=== PATIENT | female | born 1980 | race Caucasian/White ===

== ENCOUNTER 2019-07-10 14:41 | Outpatient (REF) | payer OTHER, SELFPAY ==
[2019-07-10 21:21] LABS: HGB 14.3 g/dL (12.0-15.5); Mean Corp. HGB Concentration 34.9 g/dL (32.0-36.0); Mean Corpuscular Hemoglobin 31.4 pg (27.0-33.0); Mean Corpuscular Volume 89.9 fL (80-95); Mean Platelet Volume 11.8 fL (8.0-11.0); Platelet Count 266 x1000/uL (130-400); RBC 4.56 m/cumm (4.00-5.20); RBC Distribution Width 12.8 % (11.7-14.6)
[2019-07-10 21:48] LABS: Anion Gap 11.8 mmol/L (3-11); BUN 13 mg/dL (7-18); CO2 25.2 mmol/L (21.0-32.0); CREATININE 0.85 mg/dL (0.55-1.02); Calcium 9.2 mg/dL (8.5-10.1); Chloride 104 mmol/L (98-107); Glucose 85 mg/dL (70-100); Magnesium 1.8 mg/dL (1.8-2.4); Potassium 3.7 mmol/L (3.5-5.1); Sodium 141 mmol/L (136-145); Vitamin B12 457 pg/mL (193-986)
== END 2019-07-10 15:01 ==
LOC: NCHCN 14:41
PROVIDERS: PCP Internal Medicine; Visit Provider Nurse Practitioner Family
DX: R53.83 Other fatigue (principal); R20.2 Paresthesia of skin
CPT/HCPCS: 80048; 85027; 82607; 83735

== ENCOUNTER 2019-08-12 17:42 | Outpatient (REF) | payer OTHER, SELFPAY ==
[2019-08-12 22:13] LABS: ALT 21 U/L (14-59); AST 17 U/L (15-37); Calculated LDL 131 mg/dL; Cholesterol 187 mg/dL (50-200); HDL Cholesterol 40 mg/dL (40-60); Triglyceride 82 mg/dL (30-150)
== END 2019-08-12 18:02 ==
LOC: NCHCN 17:42
PROVIDERS: PCP Internal Medicine; Visit Provider Nurse Practitioner Family
DX: Z00.00 Encounter for general adult medical examination without abnormal findings (principal); Z13.220 Encounter for screening for lipoid disorders
CPT/HCPCS: 80061; 84450; 84460

== ENCOUNTER 2020-02-12 13:49 | Outpatient (REF) | payer OTHER, SELFPAY | END 2020-02-12 14:09 | LOC: NCHCN 13:49 | PROVIDERS: PCP Internal Medicine; Visit Provider Nurse Practitioner Family | DX: N89.8 Other specified noninflammatory disorders of vagina (principal) | CPT/HCPCS: 87480; 87510; 87660 ==

== ENCOUNTER 2020-09-07 19:44 | Outpatient (REF) | payer OTHER, SELFPAY | END 2020-09-07 20:04 | LOC: NCHCN 19:44 | PROVIDERS: PCP Internal Medicine; Visit Provider Nurse Practitioner Family | DX: N89.8 Other specified noninflammatory disorders of vagina (principal) | CPT/HCPCS: 87480; 87510; 87660 ==

== ENCOUNTER 2020-09-26 12:24 | Outpatient (REF) | payer OTHER, SELFPAY ==
[2020-09-29 14:34] LABS: Patient Race White; SARS-CoV-2 RNA Undetected (Undetected); SARS-CoV-2 Specimen Source Nasal
== END 2020-09-26 12:44 ==
LOC: NCHCN 12:24
PROVIDERS: PCP Internal Medicine; Visit Provider Nurse Practitioner Family
DX: Z20.828 Contact with and (suspected) exposure to other viral communicable diseases (principal)
CPT/HCPCS: U0003

== ENCOUNTER 2020-10-11 17:20 | Outpatient (REF) | payer OTHER, SELFPAY ==
[2020-10-14 15:57] LABS: COVID-19 RT-PCR Result NEGATIVE (Negative)
== END 2020-10-11 17:40 ==
LOC: NCHCN 17:20
PROVIDERS: PCP Internal Medicine; Visit Provider Nurse Practitioner Family
DX: Z20.828 Contact with and (suspected) exposure to other viral communicable diseases (principal)
CPT/HCPCS: U0003

== ENCOUNTER 2020-10-24 21:20 | Outpatient (REF) | payer OTHER, SELFPAY ==
[2020-10-27 00:12] LABS: COVID-19 RT-PCR Result NEGATIVE (Negative)
== END 2020-10-24 21:40 ==
LOC: NCHCN 21:20
PROVIDERS: PCP Internal Medicine; Visit Provider Nurse Practitioner Family
DX: Z20.828 Contact with and (suspected) exposure to other viral communicable diseases (principal)
CPT/HCPCS: U0003

== ENCOUNTER 2020-11-10 11:33 | Outpatient (REF) | payer OTHER, SELFPAY ==
[2020-11-10 23:51] LABS: COVID-19 RT-PCR UVMMC Result Negative (Negative)
== END 2020-11-10 11:53 ==
LOC: NCHCN 11:33
PROVIDERS: PCP Internal Medicine; Visit Provider Nurse Practitioner Family
DX: Z20.828 Contact with and (suspected) exposure to other viral communicable diseases (principal)
CPT/HCPCS: U0003

== ENCOUNTER 2021-04-18 16:23 | Outpatient (REF) | payer OTHER, SELFPAY ==
[2021-04-19 02:06] LABS: COVID-19 RT-PCR UVMMC Result Negative (Negative)
== END 2021-04-18 16:24 | disposition home or self-care (01) ==
LOC: NCHCN 16:23
PROVIDERS: PCP Internal Medicine; Visit Provider Nurse Practitioner Family
DX: Z20.822 Contact with and (suspected) exposure to COVID-19 (principal)
CPT/HCPCS: U0003

== ENCOUNTER 2021-08-10 10:09 | Outpatient (REF) | payer OTHER, SELFPAY ==
[2021-08-11 20:07] LABS: COVID-19 RT-PCR UVMMC Result Negative (Negative)
== END 2021-08-10 10:10 | disposition home or self-care (01) ==
LOC: NCHCN 10:09
PROVIDERS: PCP Internal Medicine; Visit Provider Nurse Practitioner Family
DX: Z20.822 Contact with and (suspected) exposure to COVID-19 (principal)
CPT/HCPCS: U0003

== ENCOUNTER 2021-08-17 09:09 | Outpatient (REF) | payer OTHER, SELFPAY ==
[2021-08-18 19:18] LABS: COVID-19 RT-PCR UVMMC Result Negative (Negative)
== END 2021-08-17 09:10 | disposition home or self-care (01) ==
LOC: NCHCN 09:09
PROVIDERS: PCP Internal Medicine; Visit Provider Nurse Practitioner Family
DX: Z20.822 Contact with and (suspected) exposure to COVID-19 (principal)
CPT/HCPCS: U0003

== ENCOUNTER 2021-09-22 21:43 | Outpatient (REF) | payer OTHER, SELFPAY ==
[2021-09-24 00:30] LABS: COVID-19 RT-PCR UVMMC Result Negative (Negative)
== END 2021-09-22 21:44 | disposition home or self-care (01) ==
LOC: LBN 21:43
PROVIDERS: PCP Internal Medicine; Visit Provider Physician Assistant Medical
DX: Z20.822 Contact with and (suspected) exposure to COVID-19 (principal)
CPT/HCPCS: U0003

== ENCOUNTER 2021-10-19 19:07 | Outpatient (REF) | payer OTHER, SELFPAY | END 2021-10-19 19:08 | disposition home or self-care (01) | LOC: LBN 19:07 | PROVIDERS: PCP Internal Medicine; Visit Provider Physician Assistant Medical | DX: R30.9 Painful micturition, unspecified (principal) | CPT/HCPCS: 87077; 87086; 87186 ==

== ENCOUNTER 2021-11-17 11:51 | Outpatient (REF) | payer OTHER, SELFPAY ==
[2021-11-18 01:21] LABS: COVID-19 RT-PCR UVMMC Result Negative (Negative)
== END 2021-11-17 11:52 | disposition home or self-care (01) ==
LOC: LBN 11:51
PROVIDERS: PCP Internal Medicine; Visit Provider Physician Assistant Medical
DX: Z20.822 Contact with and (suspected) exposure to COVID-19 (principal)
CPT/HCPCS: U0003

== ENCOUNTER 2021-11-24 15:58 | Outpatient (REF) | payer OTHER, SELFPAY ==
[2021-11-26 07:03] LABS: COVID-19 RT-PCR UVMMC Result Positive (Negative)
== END 2021-11-24 15:59 | disposition home or self-care (01) ==
LOC: LBN 15:58
PROVIDERS: PCP Internal Medicine; Visit Provider Physician Assistant Medical
DX: Z20.822 Contact with and (suspected) exposure to COVID-19 (principal)
CPT/HCPCS: U0003

== ENCOUNTER 2022-10-17 17:47 | Outpatient (REF) | payer OTHER, SELFPAY | END 2022-10-17 17:48 | disposition home or self-care (01) | LOC: LBN 17:47 | PROVIDERS: PCP Internal Medicine; Visit Provider Physician Assistant Medical | DX: N76.0 Acute vaginitis (principal) | CPT/HCPCS: 87480; 87510; 87660 ==

== ENCOUNTER 2023-07-09 21:05 | Outpatient (REF) | payer BC, SELFPAY ==
[2023-07-09 21:25] LABS: HCT 39.3 % (36.0-46.0); HGB 13.5 g/dL (11.2-15.7); MCH 31.1 pg (27.0-33.0); MCHC 34.4 % (32.0-36.0); MCV 91 fL (80-95); MPV 11.2 fL (8.0-11.0); Platelet Count 293 10^3/uL (130-400); RBC 4.34 10^6/uL (3.93-5.22); RDW 12.6 % (11.7-14.6); RDW-SD 41.6 fL; WBC 8.32 10^3/uL (4.4-10.8)
[2023-07-09 21:26] LABS: ALT 21 U/L (14-59); AST 16 U/L (15-37); Albumin 3.5 g/dL (3.4-5.0); Alkaline Phosphatase 73 U/L (46-116); Anion Gap 6.4 mmol/L (3-11); BUN 14 mg/dL (7-18); Bilirubin, Total 0.4 mg/dL (0.2-1.0); CO2 26.6 mmol/L (21.0-32.0); CREATININE 0.8 mg/dL (0.55-1.02); Calcium 8.9 mg/dL (8.5-10.1); Calculated LDL 150 mg/dL (<100); Chloride 106 mmol/L (98-107); Cholesterol 216 mg/dL (<200); Estimated GFR 94.28 (mL/min/1.73m2); Glucose 114 mg/dL (74-106); HDL Cholesterol 44 mg/dL (40-60); Potassium 3.9 mmol/L (3.5-5.1); Sodium 139 mmol/L (136-145); Total Protein 6.6 g/dL (6.4-8.2); Triglyceride 111 mg/dL (<150)
== END 2023-07-09 21:06 | disposition home or self-care (01) ==
LOC: NCHCN 21:05
PROVIDERS: PCP Internal Medicine; Visit Provider Nurse Practitioner Family
DX: Z00.00 Encounter for general adult medical examination without abnormal findings (principal); Z13.228 Encounter for screening for other metabolic disorders; Z13.220 Encounter for screening for lipoid disorders; Z13.0 Encounter for screening for diseases of the blood and blood-forming organs and certain disorders involving the immune mechanism
CPT/HCPCS: 80053; 80061; 85027

== ENCOUNTER → 2023-07-23 02:47 | Outpatient (CLI) | payer BC, SELFPAY ==
--- NOTE | 2023-07-23 12:49 | DI.MAMMO_ITS ---
Exam(s) MAMMO SCREENING EXAM: MAMMO SCREENING CLINICAL HISTORY: BASELINE SCREENING, Z12.31 TECHNIQUE: Bilateral full field digital CC and MLO mammographic images were obtained with 3D tomosyn thesis and utilizing computer aided detection (CAD). COMPARISON: None. This is a baseline examination. FINDINGS: Masses/Architectural Distortion: There is an area of asymmetric breast tissue in the outer central le ft breast on the CC view. Microcalcifications: No suspicious pleomorphic-type are seen. Skin Thickening/Nipple Retraction: None. IMPRESSION: 1. Asymmetric breast tissue in the outer central left breast on the CC view. 2. This area should be further evaluated with spot compression view. Limited left breast ultrasound may be indicated at that time. BI-RADS Category 0 - Assessment Incomplete: Need additional imaging evaluation Breast Density - Category B - Scattered areas of fibroglandular density Breast density category C or D implies that the patient has dense breast tissue. Dense breast tissue is very common and is not abnormal but dense breast tissue can make it harder to find cancer on a ma mmogram. Also, dense breast tissue may increase their breast cancer risk. This information about the result of the mammogram report was provided to the patient to raise their awareness. Use this report when you speak with the patient about their risks for breast cancer, which includes their family hist ory. At that time, you may recommend for more screening tests (Ultrasound or MRI) as they might be us eful based on their risk. A negative radiographic report should not delay biopsy if a dominant or clinically suspicious mass is present. Up to ten percent of cancers are not identified on mammography. A negative report may reinforce clinical impression. Adenosis and dense breasts may obscure an underlying neoplasm. False positive reports average 6 to 10%. Patient will receive a letter notifying them of these results.
== END ==
PROVIDERS: PCP Internal Medicine; Visit Provider Nurse Practitioner Family
DX: Z12.31 Encounter for screening mammogram for malignant neoplasm of breast (principal)
CPT/HCPCS: 77063; 77067

== ENCOUNTER → 2023-07-30 01:19 | Outpatient (CLI) | payer BC, SELFPAY ==
--- NOTE | 2023-07-30 | DI.US_ITS ---
Exam(s) MG MAMMO SCREEN CALL BACK UNI US BREAST LT LIMITED EXAM: MG MAMMO SCREEN CALL BACK UNI and U/S breast LT limited CLINICAL HISTORY: F/U MAMMO, ASYMMETRIC BREAST TISSUE LT. TECHNIQUE: Craniocaudal and mediolateral oblique Full Field Digital Mammography views of the left br east with Computer Aided Diagnosis followed by Tomosynthesis and left breast ultrasound. COMPARISON: Comparison is made with prior examinations. FINDINGS: Mammography/Tomosynthesis: Masses/Architectural Distortion: The area of concern does not persist on the additional views. No ma sses or areas of architectural distortion are seen. Microcalcifictions: No suspicious pleomorphic-type are seen. Skin Thickening/Nipple Retraction: None. Limited left breast US: Echotexture: Normal appearance of the glandular tissue. Shadowing: No suspicious foci. Cyst: None. Solid lesions: None seen. Ductal dilation: None. IMPRESSION: 1. No evidence of malignancy is noted. 2. Unless there is more urgent need, follow-up screening mammography is recommended, as per [employer] guidelines. 3. The findings were discussed with the patient on the date of the examination. BI-RADS Category 1 - Negative Breast Density - Category B - Scattered areas of fibroglandular density Breast density Category C or D implies that the patient has dense breast tissue. Dense breast tissue can make it harder to find cancer on a mammogram. Dense breast tissue is also associated with an incr eased risk of breast cancer. This information about the result of the mammogram report was provided to the patient to raise their awareness. Use this report when you speak with the patient about their risks for breast cancer, which includes their family history. At that time, you may recommend additional screening tests (Ultrasoun d or MRI) as these tests may add significant information. A negative radiographic report should not delay biopsy if a dominant or clinically suspicious mass is present. Up to ten percent of cancers are not identified on mammography. A negative report may reinforce clinical impression. Adenosis and dense breasts may obscure an underlying neoplasm. False positive reports average 6 to 10%. Patient will receive a letter notifying them of these results.
== END ==
PROVIDERS: PCP Internal Medicine; Visit Provider Nurse Practitioner Family
DX: Z12.31 Encounter for screening mammogram for malignant neoplasm of breast (principal); R92.8 Other abnormal and inconclusive findings on diagnostic imaging of breast
CPT/HCPCS: 76642; 77063; 77067

== ENCOUNTER 2023-09-05 10:15 | Outpatient (REF) | payer BC, SELFPAY ==
--- NOTE | 2023-09-05 10:15 | PAPFT_PTH ---
PATIENT: Ana Maria Escamilla LOC: [facility] U#:[id number] AGE/SX: 43/F ROOM: RE09/05/[address]: Irene Arana MD : [id number] BED: DIS: 09/05/2023 SPEC #: [id number] RECD: 09/05/23 12:51 STATUS: BRENNAN RELaureano #: [id number] JUAN: 09/05/23 10:[address]: Irene Arana DEPT: [facility] Cytology RECD BY: Lor Matthews ENTERED: 09/05/23 12:51 SP TYPE: PAPFT OTHR DR: Miguel Morelos Tissues: 1 - CX/ENDOCX FOR PAP SMEARS Procedures: PAP THIN PREP/[facility] Screening Comments: [id number]
== END 2023-09-05 10:16 | disposition home or self-care (01) ==
LOC: LBN 10:15
PROVIDERS: PCP Obstetrics & Gynecology; Visit Provider Obstetrics & Gynecology
DX: Z12.4 Encounter for screening for malignant neoplasm of cervix (principal)
CPT/HCPCS: 88142

== ENCOUNTER → 2024-03-19 14:43 | Outpatient (CLI) | payer BC, SELFPAY ==
--- NOTE | 2024-03-19 13:56 | DI.RAD_ITS ---
Exam(s) XR WRIST RT COMPL NAVICULAR EXAM: XR WRIST RT COMPL NAVICULAR CLINICAL HISTORY: Rt wrist pain, M25.531. TECHNIQUE: 2D digital imaging was performed of the right wrist. Four views were obtained. Scaphoid, PA, lateral and oblique views were obtained. COMPARISON: No exams were available for comparison FINDINGS: BONES: No acute fracture is present. No bony destructive lesion is seen. JOINTS: The carpal bones are normally aligned. SOFT TISSUE: Normal. IMPRESSION: Unremarkable radiographs of the right wrist. DATA REPOSITORY: RADIATION DOSE DELIVERED:
== END ==
PROVIDERS: PCP Internal Medicine; Visit Provider Physician Assistant Medical
DX: M25.531 Pain in right wrist (principal)
CPT/HCPCS: 73110

== ENCOUNTER → 2024-04-24 00:25 | Outpatient (CLI) | payer BC, SELFPAY ==
--- NOTE | 2024-04-24 | DI.MRI_ITS ---
Exam(s) MR BRAIN WO/W EXAM: MR BRAIN WO/W CLINICAL HISTORY: ABNL VISION, H54.7. TECHNIQUE: Multiplanar multisequence MRI of the brain was performed. CONTRAST MATERIAL: IV Contrast: 17 ML of Dotarem contrast administered. COMPARISON: MR MRI - BRAIN W/WO CONTRAST from 01/31/2017 FINDINGS: VENTRICLES AND EXTRA AXIAL SPACES: Normal in size and morphology for the patient's age. HEMORRHAGE: None. CEREBRAL PARENCHYMA: No focus of restricted diffusion to suggest acute infarct. No space-occupying le karlos identified. No abnormal high signal foci in the white matter. MIDLINE SHIFT: None. BRAINSTEM/CEREBELLUM: Normal. CALVARIUM: Normal. ENHANCEMENT: No suspicious enhancement identified. VISUALIZED PARANASAL SINUSES/MASTOIDS: Mucous retention cyst right maxillary sinus. Orbits: Unremarkable. Pituitary: Normal size . Vasculature: Normal flow voids. IMPRESSION: Unremarkable MRI of the brain. DATA REPOSITORY:
[2024-04-24] MEDS: Gadoterate meglumine 20 ML SYRINGE IVP (10:32)
[2024-04-24] MEDS: Normal Saline Flush 10 ML SYR IJ (10:33)
== END ==
PROVIDERS: PCP Nurse Practitioner Family; Visit Provider Nurse Practitioner Family
DX: H54.7 Unspecified visual loss (principal)
CPT/HCPCS: 70553

== ENCOUNTER 2024-07-14 19:15 | Outpatient (REF) | payer BC, SELFPAY ==
[2024-07-14 20:48] LABS: HCT 42.1 % (36.0-46.0); HGB 14.5 g/dL (11.2-15.7); MCH 31.3 pg (27.0-33.0); MCHC 34.4 % (32.0-36.0); MCV 91 fL (80-95); MPV 11.2 fL (8.0-11.0); Platelet Count 292 10^3/uL (130-400); RBC 4.63 10^6/uL (3.93-5.22); RDW 12.5 % (11.7-14.6); WBC 8.74 10^3/uL (4.4-10.8)
[2024-07-14 21:08] LABS: ALT 24 U/L (14-59); AST 16 U/L (15-37); Albumin 3.9 g/dL (3.4-5.0); Alkaline Phosphatase 79 U/L (46-116); Anion Gap 10.8 mmol/L (3-11); BUN 13 mg/dL (7-18); Bilirubin, Total 0.65 mg/dL (0.2-1.0); CO2 25.2 mmol/L (21.0-32.0); Calcium 8.9 mg/dL (8.5-10.1); Calculated LDL 143 mg/dL (<100); Chloride 106 mmol/L (98-107); Cholesterol 212 mg/dL (<200); Estimated GFR 71.69 (mL/min/1.73m2); Glucose 90 mg/dL (74-106); HDL Cholesterol 54 mg/dL (40-60); Sodium 142 mmol/L (136-145); TSH (W/Ref FT4) 2.19 uIU/mL (0.36-3.74); Total Protein 6.9 g/dL (6.4-8.2); Triglyceride 76 mg/dL (<150)
== END 2024-07-14 19:16 | disposition home or self-care (01) ==
LOC: NCHCN 19:15
PROVIDERS: PCP Nurse Practitioner Family; Visit Provider Nurse Practitioner Family
DX: Z00.00 Encounter for general adult medical examination without abnormal findings (principal); R00.2 Palpitations; Z13.220 Encounter for screening for lipoid disorders
CPT/HCPCS: 80053; 80061; 85027; 84443

== ENCOUNTER 2024-07-31 01:09 | Outpatient (CLI) | payer BC, SELFPAY ==
--- NOTE | 2024-07-31 08:25 | DI.MAMMO_ITS ---
Exam(s) MAMMO SCREENING EXAM: MAMMO SCREENING CLINICAL HISTORY: Z12.31 Screening TECHNIQUE: Bilateral full field digital CC and MLO mammographic images were obtained with 3D tomosyn thesis and utilizing computer aided detection (CAD). COMPARISON: Available for comparison. FINDINGS: Masses/Architectural Distortion: There is stable asymmetric breast tissue in the outer left breast. No suspicious masses or areas of architectural distortion are seen. Microcalcifications: No suspicious pleomorphic-type are seen. Skin Thickening/Nipple Retraction: None. IMPRESSION: 1. No significant interval change with no specific features of malignancy noted. 2. Unless there is more urgent need, screening mammography is recommended, as per [employer] [employer] guidelines. BI-RADS Category 2 - Benign Findings Breast Density - Category B - Scattered areas of fibroglandular density Breast density category C or D implies that the patient has dense breast tissue. Dense breast tissue is very common and is not abnormal but dense breast tissue can make it harder to find cancer on a ma mmogram. Also, dense breast tissue may increase their breast cancer risk. This information about the result of the mammogram report was provided to the patient to raise their awareness. Use this report when you speak with the patient about their risks for breast cancer, which includes their family hist ory. At that time, you may recommend for more screening tests (Ultrasound or MRI) as they might be us eful based on their risk. A negative radiographic report should not delay biopsy if a dominant or clinically suspicious mass is present. Up to ten percent of cancers are not identified on mammography. A negative report may reinforce clinical impression. Adenosis and dense breasts may obscure an underlying neoplasm. False positive reports average 6 to 10%. Patient will receive a letter notifying them of these results.
== END 2024-07-31 01:29 ==
LOC: DI 01:09
PROVIDERS: PCP Nurse Practitioner Family; Visit Provider Nurse Practitioner Family
DX: Z12.31 Encounter for screening mammogram for malignant neoplasm of breast (principal)
CPT/HCPCS: 77063; 77067

== ENCOUNTER 2024-08-10 13:16 | Outpatient (RCR) | payer BC, SELFPAY ==
--- NOTE | 2024-08-10 08:45 | HOLTER_ITS ---
APPROVED REPORT Conclusion This is a 48-hour Holter monitor Rhythm throughout was sinus with an average heart rate of 64. Minimum was 48, maximum 116 There were very rare isolated atrial and ventricular ectopic beats There was no atrial fibrillation, no high-grade AV block, no pauses greater than 3 seconds There were no apparent patient symptoms
== END 2024-09-03 23:59 | disposition home or self-care (01) ==
LOC: CARDOPNVT 13:16
PROVIDERS: PCP Nurse Practitioner Family; Visit Provider Internal Medicine Cardiovascular Disease
DX: R00.2 Palpitations (principal)
CPT/HCPCS: 93225; 93226

== ENCOUNTER 2025-08-06 04:14 | Outpatient (CLI) | payer OTHER, SELFPAY ==
--- NOTE | 2025-08-06 | DI.MAMMO_ITS ---
Exam(s) MAMMO SCREENING EXAM: MAMMO SCREENING CLINICAL HISTORY: SCREENING MAMMO Z12.31. TECHNIQUE: Bilateral full field digital CC and MLO mammographic images were obtained with 3D tomosynthesis and utilizing computer aided detection (CAD). COMPARISON: Prior mammograms were reviewed. FINDINGS: There has been no significant change in the appearance and distribution of the fibroglandular tissue. Area of asymmetric glandular tissue in the left breast in CC view appears stable. There are no malignant-appearing microcalcification groups in this region or elsewhere in either breast. There are no new spiculated masses nor malignant appearing microcalcification groups. There is no significant architectural distortion nor skin thickening-retraction. IMPRESSION: No radiographic evidence of malignancy. Stable benign-appearing findings. BI-RADS Category 2 - Benign Findings Breast Density - Category B - There are scattered areas of fibroglandular density. Breast density Category C or D implies that the patient has dense breast tissue. Dense breast tissue can make it harder to find cancer on a mammogram. Dense breast tissue is also associated with an increased risk of breast cancer. This information about the result of the mammogram report was provided to the patient to raise their awareness. Use this report when you speak with the patient about their risks for breast cancer, which includes their family history. At that time, you may recommend additional screening tests (Ultrasound or MRI) as these tests may add significant information. A negative radiographic report should not delay biopsy if a dominant or clinically suspicious mass is present. Up to ten percent of cancers are not identified on mammography. A negative report may reinforce clinical impression. Adenosis and dense breasts may obscure an underlying neoplasm. False positive reports average 6 to 10%. Patient will receive a letter notifying them of these results.
== END 2025-08-06 04:34 ==
PROVIDERS: PCP Nurse Practitioner Family; Visit Provider Nurse Practitioner Family
DX: Z12.31 Encounter for screening mammogram for malignant neoplasm of breast (principal); R92.323 Mammographic fibroglandular density, bilateral breasts
CPT/HCPCS: 77063; 77067